=== PATIENT | male | born 1965 | race Caucasian/White ===

== ENCOUNTER 2017-12-06 18:25 | Observation (INO) | payer BC ==
[2017-12-06] MEDS ORDERED: SODIUM CHLORIDE 0.9% 1,000 ML IV ONE (19:47)
[2017-12-06 20:03] LABS: Basophils # (A) 0.1 k/uL (0-0.2); Basophils % (A) 0 %; Eosinophils # (A) 0.4 k/uL (0-0.7); Eosinophils % (A) 3 %; HCT 41.4 % (39.0-53.0); HGB 13.8 gm/dL (13.0-17.5); Lymphocytes # (A) 2.3 k/uL (1.0-4.8); Lymphocytes % (A) 20 %; MCH 30.7 pg (25.0-35.0); MCHC 33.3 g/dL (31.0-37.0); MCV 92.4 fL (80.0-100.0); Mean Platelet Volume 6.5; Monocytes # (A) 0.6 k/uL (0-1.0); Monocytes % (A) 5 %; Neutrophils # (A) 7.9 k/uL (1.3-7.7); Neutrophils % (A) 70 %; Platelet Count 422 k/uL (150-450); RBC 4.48 m/uL (4.30-5.90); RDW 13.9 % (11.5-15.5); WBC 11.3 k/uL (3.8-10.6)
[2017-12-06 20:18] LABS: Albumin 4.6 g/dL (3.5-5.0); Bilirubin, Delta 0.7 mg/dL (0.0-0.2); Calcium 9.8 mg/dL (8.4-10.2); Total Bilirubin 0.7 mg/dL (0.2-1.3); Total Protein 7.5 g/dL (6.3-8.2)
--- NOTE | 2017-12-06 20:27 | ED ---
Dizziness HPI - General Chief Complaint: Syncope Stated Complaint: low BP Time Seen by Provider: 12/06/17 19:37 Source: patient Mode of arrival: ambulatory Limitations: no limitations - History of Present Illness Initial Comments: [id number] male presenting after syncopal episode. Patient states he was at work when he stood up to do something in his computer, became lightheaded, and passed out. States he awoke on the floor and is now having neck pain and still feeling lightheaded. He denies any chest pain, shortness of breath. Denies any blood thinner use. Patient states he was placed on antihypertensives 2 months prior and took his dose at 11 AM this morning. Denies drug or alcohol use. Denies a history of syncopal events or congestive heart failure. Denies any history of abdominal aortic aneurysm. - Related Data Home Medications Medication Instructions Recorded Confirmed Diazepam [Valium] 5 mg PO HS 12/06/17 12/06/17 FLUoxetine HCL [PROzac] 20 mg PO DAILY 12/06/17 12/06/17 Gabapentin 1,200 mg PO HS 12/06/17 12/06/17 Gabapentin 600 mg PO QAM 12/06/17 12/06/17 HYDROcodone/APAP 10-325MG [[place] 1 - 2 tab PO TID PRN 12/06/17 12/06/17 10-325] Lisinopril [Zestril] 10 mg PO DAILY 12/06/17 12/06/17 Omeprazole [PriLOSEC] 20 mg PO DAILY 12/06/17 12/06/17 Allergies Allergy/AdvReac Type Severity Reaction Status Date / Time Penicillins Allergy Unknown Verified 12/06/17 19:49 Childhood Review of Systems ROS Statement: Those systems with pertinent positive or pertinent negative responses have been documented in the HPI. Review of Systems Constitutional: Denies fever, chills Eyes: Denies change in vision, Denies pain Ears, nose, mouth, throat: Denies headaches, Denies sore throat Cardiovascular: Denies chest pain. Denies palpitations . Positive syncope. Positive light headedness. Respiratory: Denies shortness of breath, Denies cough Gastrointestinal: Denies abdominal pain. Denies nausea, vomiting, diarrhea. Genitourinary: Denies hematuria, Denies infections Musculoskeletal: Denies pain, Denies swelling Integumentary: Denies rash Neurological: Denies headache, focal weakness, focal numbness. Psychiatric: Denies anxiety, Denies depression Hematologic/Lymphatic: Denies easy bleeding or bruising ROS Other: All systems not noted in ROS Statement are negative. Past Medical History Past Medical History: GERD/Reflux, Hypertension, Osteoarthritis (OA) Additional Past Medical History / Comment(s): herniated discs, chronic back pain History of Any Multi-Drug Resistant Organisms: None Reported Past Surgical History: Orthopedic Surgery Past Psychological History: Depression Smoking Status: Current every day smoker Past Alcohol Use History: None Reported Past Drug Use History: None Reported General Exam - General Exam Comments Initial Comments: General: Awake, alert, No acute Distress HENT: Normocephalic. Atraumatic Eyes: PERRL. EOMI. No scleral icterus. No injected conjunctiva Neck: Full ROM Chest/Lungs: Clear to auscultation bilaterally. No wheezing, rhonchi, or rales Cardiac: Regular rate, rhythm. No murmurs or rubs. no carotid bruit. No abdominal bruit. No lower extremity swelling. Abdomen/GI: [Soft, nontender, nondistended. No rebound, guarding, or rigidity. Musculoskeletal: Full ROM Skin: Warm, dry, intact Neurologic: A/Ox3, no weakness, no sensory deficit, no abnormal gait, no coordination deficit. Limitations: no limitations Course Vital Signs 12/06/17 12/06/17 12/06/17 18:30 21:09 22:37 Temperature 97.7 F Pulse Rate 103 H 69 69 Respiratory 20 18 18 Rate Blood Pressure 97/63 122/69 103/59 O2 Sat by Pulse 95 97 99 Oximetry Medical Decision Making - Medical Decision Making page 2-year-old male presenting after a syncopal event. Initial exam the patient is awake and alert. He is mildly hypotensive and tachycardic. EKG shows normal sinus rhythm at a rate of 69 bpm. No previous EKG for comparison. Patient has equal distal pulses. He has no abdominal bruit. Patient's C-collar cleared after negative radiographic findings. Patient's neck pain is chronic as well as his back pain. Patient's laboratory work revealed PAUL and a mild leukocytosis but was otherwise unremarkable. His imaging was negative. His blood pressure is improved but he still complaining of lightheadedness. Spoke with Breana who is agreeable to admission with cardiology on consult. Held patient's lisinopril secondary to his borderline hypotension and PAUL. Patient is currently stable for transfer to the floor. - Lab Data Result diagrams: 12/06/17 19:51 12/06/17 19:51 Lab Results 12/06/17 12/06/17 12/06/17 Range/Units 19:51 19:51 19:51 WBC 11.3 H (3.8-10.6) k/uL RBC 4.48 (4.30-5.90) m/uL Hgb 13.8 (13.0-17.5) gm/dL Hct 41.4 (39.0-53.0) % MCV 92.4 (80.0-100.0) fL MCH 30.7 (25.0-35.0) pg MCHC 33.3 (31.0-37.0) g/dL RDW 13.9 (11.5-15.5) % Plt Count 422 (150-450) k/uL Neutrophils % 70 % Lymphocytes % 20 % Monocytes % 5 % Eosinophils % 3 % Basophils % 0 % Neutrophils # 7.9 H (1.3-7.7) k/uL Lymphocytes # 2.3 (1.0-4.8) k/uL Monocytes # 0.6 (0-1.0) k/uL Eosinophils # 0.4 (0-0.7) k/uL Basophils # 0.1 (0-0.2) k/uL Sodium 139 (137-145) mmol/L Potassium 5.0 (3.5-5.1) mmol/L Chloride 102 (98-107) mmol/L Carbon Dioxide 28 (22-30) mmol/L Anion Gap 9 mmol/L BUN 26 H (9-20) mg/dL Creatinine 2.01 H (0.66-1.25) mg/dL Est GFR (CKD-EPI)AfAm 43 (>60 ml/min/1.73 sqM) Est GFR (CKD-EPI)NonAf 37 (>60 ml/min/1.73 sqM) Glucose 83 (74-99) mg/dL Calcium 9.8 (8.4-10.2) mg/dL Total Bilirubin 0.7 (0.2-1.3) mg/dL Conjugated Bilirubin 0.0 (0.0-0.3) mg/dL Unconjugated Bilirubin 0.0 (0.0-1.1) mg/dL Delta Bilirubin 0.7 H (0.0-0.2) mg/dL AST 24 (17-59) U/L ALT 15 L (21-72) U/L Alkaline Phosphatase 82 (38-126) U/L Troponin I <0.012 (0.000-0.034) ng/mL NT-Pro-B Natriuret Pep pg/mL Total Protein 7.5 (6.3-8.2) g/dL Albumin 4.6 (3.5-5.0) g/dL Lipase 82 (23-300) U/L 12/06/17 Range/Units 19:51 WBC (3.8-10.6) k/uL RBC (4.30-5.90) m/uL Hgb (13.0-17.5) gm/dL Hct (39.0-53.0) % MCV (80.0-100.0) fL MCH (25.0-35.0) pg MCHC (31.0-37.0) g/dL RDW (11.5-15.5) % Plt Count (150-450) k/uL Neutrophils % % Lymphocytes % % Monocytes % % Eosinophils % % Basophils % % Neutrophils # (1.3-7.7) k/uL Lymphocytes # (1.0-4.8) k/uL Monocytes # (0-1.0) k/uL Eosinophils # (0-0.7) k/uL Basophils # (0-0.2) k/uL Sodium (137-145) mmol/L Potassium (3.5-5.1) mmol/L Chloride (98-107) mmol/L Carbon Dioxide (22-30) mmol/L Anion Gap mmol/L BUN (9-20) mg/dL Creatinine (0.66-1.25) mg/dL Est GFR (CKD-EPI)AfAm (>60 ml/min/1.73 sqM) Est GFR (CKD-EPI)NonAf (>60 ml/min/1.73 sqM) Glucose (74-99) mg/dL Calcium (8.4-10.2) mg/dL Total Bilirubin (0.2-1.3) mg/dL Conjugated Bilirubin (0.0-0.3) mg/dL Unconjugated Bilirubin (0.0-1.1) mg/dL Delta Bilirubin (0.0-0.2) mg/dL AST (17-59) U/L ALT (21-72) U/L Alkaline Phosphatase (38-126) U/L Troponin I (0.000-0.034) ng/mL NT-Pro-B Natriuret Pep 58 pg/mL Total Protein (6.3-8.2) g/dL Albumin (3.5-5.0) g/dL Lipase (23-300) U/L Disposition Clinical Impression: Syncope, Light headedness, PAUL (acute kidney injury), Leukocytosis Disposition: ADMITTED IP TO THIS HOSP Condition: Good Referrals: Nonstaff,Physician [Primary Care Provider] - 1-2 days
--- NOTE | 2017-12-06 20:53 | CT ---
EXAMINATION TYPE: CT brain ciciine wo con DATE OF EXAM: 12/06/2017 COMPARISON: NONE HISTORY: Syncope with head injury and neck pain CT DLP: 1610.5 mGycm. Automated Exposure Control for Dose Reduction was Utilized. TECHNIQUE: CT scan of the head and cervical spine are performed without contrast. FINDINGS: There is no acute intracranial hemorrhage, mass effect, or midline shift identified. The ventricles and sulci are within normal limits in size. The globes are intact. There is partial opac ification of the right mastoid air cells. Left mastoid air cells are well aerated. Scant mucosal thic kening is seen within the maxillary sinuses and sphenoid sinuses as well as left frontal sinus. Moder ate mucosal thickening is present within the ethmoid sinuses. Incidental note is made of a left conch a bullosa. Frontal innumerable dermal calcifications are seen within the subcutaneous tissues and ski n surface. Cervical spine is visualized in its entirety from C1 through upper thoracic levels and demonstrates s atisfactory alignment without evidence of acute fracture or dislocation. Multilevel moderate degener ative changes of the cervical spine are seen as there are numerous osseous cysts and intervertebral d isc space narrowing. Small disc osteophyte complexes are seen at C5-C6 and C6-C7 creating mild spinal canal stenosis and bilateral neural foraminal narrowing at these levels. Prevertebral soft tissue ap pears within normal limits. The C1-C2 articulation is unremarkable. IMPRESSION: 1. There is no acute fracture or dislocation evident in the cervical spine. 2. No acute intracranial hemorrhage, mass effect, or midline shift is seen. 3. Moderate paranasal sinus disease. 4. Numerous calcifications within the skin and subcutaneous tissues predominating within the frontal region. These may represent dermal calcifications or debris given the patient's history of head injur y. 5. Moderate multilevel degenerative disc disease of the cervical spine creating minimal spinal canal stenosis at C5-C6 and C6-C7.
[2017-12-06] MEDS ORDERED: KETOROLAC 30 MG/ML 1 ML VIAL IVP STA (21:03)
--- NOTE | 2017-12-06 21:19 | XR ---
EXAMINATION TYPE: XR chest 2V DATE OF EXAM: 12/06/2017 COMPARISON: NONE HISTORY: syncopal episode TECHNIQUE: Frontal and lateral views of the chest are obtained. FINDINGS: There is no focal air space opacity, pleural effusion, or pneumothorax seen. The cardiac silhouette size is within normal limits. The osseous structures are intact. Normal degenerative juliet nges of the thoracic spine are noted. IMPRESSION: No acute cardiopulmonary process.
[2017-12-06] MEDS ORDERED: MELATONIN 3 MG TABLET PO PRN (22:34)
[2017-12-06] MEDS ORDERED: ONDANSETRON 4 MG/2 ML VIAL IVP PRN (22:34)
[2017-12-06] MEDS ORDERED: KETOROLAC 30 MG/ML 1 ML VIAL IVP PRN (22:34)
[2017-12-06] MEDS ORDERED: HYDROcodone/APAP 5-325MG 1 EACH TAB PO PRN (22:34)
[2017-12-06] MEDS ORDERED: NALOXONE 0.4 MG/ML 1 ML VIAL IV PRN (22:34)
[2017-12-06] MEDS ORDERED: LACTATED RINGERS 1,000 ML IV SCH (22:45)
[2017-12-06 23:32] VITALS: RESP 16
[2017-12-06] MEDS ORDERED: DIAZEPAM 5 MG TAB PO SCH (23:33)
[2017-12-06 23:44] VITALS: BMI 29.7
[2017-12-07] MEDS: HEPARIN SODIUM,PORCINE 5,000 UNIT/ML 1 ML VIAL SQ SCH ×3 (00:04→17:34)
[2017-12-07 07:33] LABS: Basophils % (A) 1 %; Eosinophils # (A) 0.4 k/uL (0-0.7); Eosinophils % (A) 5 %; HCT 39.1 % (39.0-53.0); HGB 12.7 gm/dL (13.0-17.5); Lymphocytes # (A) 2.6 k/uL (1.0-4.8); Lymphocytes % (A) 35 %; MCH 30.4 pg (25.0-35.0); MCHC 32.5 g/dL (31.0-37.0); MCV 93.6 fL (80.0-100.0); Mean Platelet Volume 6.9; Monocytes # (A) 0.7 k/uL (0-1.0); Monocytes % (A) 9 %; Neutrophils # (A) 3.6 k/uL (1.3-7.7); Neutrophils % (A) 48 %; Platelet Count 377 k/uL (150-450); RBC 4.17 m/uL (4.30-5.90); RDW 14.1 % (11.5-15.5); WBC 7.5 k/uL (3.8-10.6)
[2017-12-07 07:49] LABS: Potassium 4.4 mmol/L (3.5-5.1)
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
[2017-12-07] MEDS ORDERED: GABAPENTIN 300 MG CAP PO SCH (09:00)
[2017-12-07] MEDS ORDERED: FAMOTIDINE 20 MG TAB PO SCH (09:00)
[2017-12-07] MEDS ORDERED: FLUoxetine HCL 20 MG CAP PO SCH (09:00)
[2017-12-07 09:55] LABS: Cholesterol 178 mg/dL (<200); HDL Cholesterol 44 mg/dL (40-60); LDL Cholesterol,Calculated 92 mg/dL (0-99); Triglycerides 211 mg/dL (<150)
--- NOTE | 2017-12-07 11:58 | ECHOF ---
Referral Reason:syncope MEASUREMENTS -------- HEIGHT: 170.2 cm WEIGHT: 86.2 kg BP: 127/83 RVIDd: 3.6 cm (< 3.3) IVSd: 1.4 cm (0.6 - 1.1) LVIDd: 3.4 cm (3.9 - 5.3) LVPWd: 1.4 cm (0.6 - 1.1) IVSs: 2.2 cm LVIDs: 2.4 cm LVPWs: 1.9 cm LA Diam: 3.6 cm (2.7 - 3.8) LAESV Index (A-L): 31.26 ml/m Ao Diam: 3.7 cm (2.0 - 3.7) AV Cusp: 2.7 cm (1.5 - 2.6) MV EXCURSION: 16.312 mm (> 18.000) MV EF SLOPE: 86 mm/s (70 - 150) EPSS: 0.2 cm MV E Rivera: 0.80 m/s MV DecT: 188 ms MV A Rivera: 0.76 m/s MV E/A Ratio: 1.06 RAP: 5.00 mmHg RVSP: 28.48 mmHg FINDINGS -------- Sinus rhythm. This was a technically good study. The left ventricular size is normal. There is moderate concentric left ventricular hypertrophy. O verall left ventricular systolic function is normal with, an EF between 60 - 65 %. The right ventricle is mildly enlarged. LA is midly dilated 29-33ml/m2. The right atrium is normal in size. The aortic valve is trileaflet and appears structurally normal. The mitral valve is normal. Mild tricuspid regurgitation present. Right ventricular systolic pressure is normal at < 35 mmHg. There is no pulmonic regurgitation present. The aortic root size is normal. Normal inferior vena cava with normal inspiratory collapse consistent with estimated right atrial pre ssure of 5 mmHg. There is no pericardial effusion. CONCLUSIONS -------- 1. Sinus rhythm. 2. This was a technically good study. 3. The left ventricular size is normal. 4. There is moderate concentric left ventricular hypertrophy. 5. Overall left ventricular systolic function is normal with, an EF between 60 - 65 %. 6. The right ventricle is mildly enlarged. 7. LA is midly dilated 29-33ml/m2. 8. The right atrium is normal in size. 9. The aortic valve is trileaflet and appears structurally normal. 10. The mitral valve is normal. 11. Mild tricuspid regurgitation present. 12. Right ventricular systolic pressure is normal at < 35 mmHg. 13. There is no pulmonic regurgitation present. 14. The aortic root size is normal. 15. Normal inferior vena cava with normal inspiratory collapse consistent with estimated right atrial pressure of 5 mmHg. 16. There is no pericardial effusion. HUNTER GUIDE: Zully Flor RDCS
[2017-12-07 12:06] VITALS: BP 141/95; TEMP 97.9
[2017-12-07 12:18] LABS: Appearance,Urine Cloudy (Clear); Bacteria,Urine Occasional /hpf; Bilirubin,Urine 3+ (Negative); Blood,Urine Negative (Negative); Color,Urine Yellow; Glucose,Urine (UA) Negative (Negative); Hyaline Casts,Urine 6 /lpf (0-2); Ketones,Urine Negative (Negative); Leukocyte Esterase,Urine Trace (Negative); Mucus,Urine Many /hpf; Nitrite,Urine Negative (Negative); Protein,Urine 1+ (Negative); RBC,Urine 4 /hpf (0-5); WBC,Urine 23 /hpf (0-5)
[2017-12-07 12:46] VITALS: PULSE 69
--- NOTE | 2017-12-07 14:11 | EST ---
EXERCISE STRESS AGE: 52 SEX: M HT: 67" WT: 190 PROTOCOL: Solo Stress Test STAGE: III DURATION OF EXERCISE: 10:09 HEART RATE REST: 81 BLOOD PRESSURE REST: 128/91 MAXIMUM HEART RATE ACHIEVED: 146 MAXIMUM BLOOD PRESSURE: 160/80 85% MPHR: 143 100% MPHR: 168 METS: 11.7 INDICATIONS: Chest pain, dizzy, passed out. CLINICAL INFORMATION: STRESS DATA: Pretesting physical examination showed a heart rate of 81, pressure is 128/91 mmHg. Baseline EKG showed sinus mechanism. The patient exercised on the treadmill according to Solo protocol for a total of 10 minutes and 9 seconds and achieved 11.7 METS. Max heart rate was 146, which is about 86% of maximum predicted heart rate. Maximum blood pressure was 160/80 mmHg. Clinically, the patient did not have any symptoms of chest pain or discomfort during the testing or in the recovery period. He did have some shortness of breath during exercise. The EKG did not show any significant ST or T-wave abnormalities consistent with ischemia. CONCLUSION: 1. Excellent exercise capacity. 2. Normal EKG in response to exercise. 3. Essentially normal exercise treadmill for this patient. MMODL / IJN: [id number] /
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
[2017-12-07] MEDS ORDERED: DIAZEPAM 5 MG TAB PO SCH (21:00)
== END 2017-12-07 17:45 | disposition home or self-care (01) ==
LOC: EC 18:25 → 3OBS 22:34
PROVIDERS: ADMIT Hospitalist; ATTEND Hospitalist
DX: R55 Syncope and collapse (principal); N17.9 Acute kidney failure, unspecified; E86.0 Dehydration; I95.9 Hypotension, unspecified; R00.0 Tachycardia, unspecified; F17.210 Nicotine dependence, cigarettes, uncomplicated; I10 Essential (primary) hypertension; M19.90 Unspecified osteoarthritis, unspecified site; K21.9 Gastro-esophageal reflux disease without esophagitis; G89.29 Other chronic pain; M54.2 Cervicalgia; M54.9 Dorsalgia, unspecified; F32.9 Major depressive disorder, single episode, unspecified; M48.02 Spinal stenosis, cervical region; M50.30 Other cervical disc degeneration, unspecified cervical region; E66.9 Obesity, unspecified; Z68.29 Body mass index [BMI] 29.0-29.9, adult; G62.9 Polyneuropathy, unspecified; Z79.899 Other long term (current) drug therapy; Z88.0 Allergy status to penicillin; Z87.81 Personal history of (healed) traumatic fracture; Z86.14 Personal history of Methicillin resistant Staphylococcus aureus infection; Z80.9 Family history of malignant neoplasm, unspecified
CPT/HCPCS: 99285 ×2; 96374 ×2; 96361 ×2; 96372; 36415; 93005; 93017; 93306; 85379; 83880; 80061; 80048 ×2; 80076; 83690; 84484 ×2; 85025 ×2; 81001; 71046; 72125; 70450; G0378 ×2; J1644; J1885